=== PATIENT | male | born 1975 | race Two or more races ===

== ENCOUNTER 2024-07-13 02:56 | Emergency (ER) | payer MEDICAID, SELFPAY ==
[2024-07-13 03:06] VITALS: BP 132/77; PULSE 63; RESP 18; TEMP 36.7; O2SAT 97
--- NOTE | 2024-07-13 03:43 | EDNOTE_ITS ---
ED Extremity Problem RME/HPI General Chief complaint: Extremity Injury, Upper Stated complaint: RIGHT SHOULDER PAIN Time Seen by Provider: 07/13/24 03:39 Arrival date/time: 07/13/24 02:56 49M with no significant PMH presents to ED with [id number] R shoulder pain. Patient denies fall/trauma. Limitations: no limitations Related Data Allergies Allergy/AdvReac Type Severity Reaction Status Date / Time No Known Allergies Allergy Verified 07/13/24 03:05 Review of Systems Review of Systems Systems Reviewed: All systems reviewed, normal except as documented Constitutional Constitutional: Reports system reviewed and no additional complaints, except as documented, Denies fever(s) and Denies headache(s) ENT Ears, Nose, Mouth, and Throat: Denies disequilibrium and Denies headache(s) Cardiovascular Cardiovascular: Reports system reviewed and no additional complaints, except as documented, Denies chest pain and Denies dyspnea Respiratory Respiratory: Reports system reviewed and no additional complaints, except as documented, Denies cough and Denies dyspnea Gastrointestinal Gastrointestinal: Reports system reviewed and no additional complaints, except as documented, Denies abdominal pain, Denies nausea and Denies vomiting Musculoskeletal Musculoskeletal: Reports as per HPI and Reports arthralgias Neurologic Neurologic: Reports system reviewed and no additional complaints, except as d ocumented, Denies confusion, Denies disequilibrium and Denies headache(s) Psychiatric Psychiatric: Denies confusion Past Medical History Social History SMOKING STATUS: Never smoker ED Exam General Limitations: Present no limitations General appearance: Present alert and in no apparent distress Head Head exam: Present atraumatic Eye Eye exam: Present normal appearance, PERRL and EOMI ENT ENT exam: Present normal exam, normal oropharynx and mucous membranes moist Neck Neck exam: Present normal inspection, full ROM and trachea midline Chest Chest inspection: Present normal inspection and symmetric chest wall rise Respiratory Respiratory exam: Present normal lung sounds bilaterally Cardiovascular Cardiovascular exam: Present regular rate, normal rhythm and normal heart sounds Abdominal Exam Abdominal exam: Present soft and normal bowel sounds Extremities Exam Extremities exam: Present normal inspection and full ROM Back Exam Back exam: Present normal inspection and full ROM Neurological Exam Neurological exam: Present alert, oriented X3 and CN II-XII intact Psychiatric Psychiatric exam: Present normal affect and normal mood Skin Skin exam: Present warm, dry, intact and normal color Course Quality Measures none Orders Category Date Time Status sling [Splint / Immobilizer] STAT Care 07/13/24 03:42 Active Ketorolac Inj [Toradol Inj] Med 07/13/24 03:40 Discontinued 60 mg IM X1 ONE Vital Signs Vital signs: Vital Signs Temperature 98.0 F 07/13/24 03:06 Pulse Rate 63 07/13/24 03:06 Respiratory Rate 18 07/13/24 03:06 Blood Pressure 132/77 H 07/13/24 03:06 Pulse Oximetry (%) 97 07/13/24 03:06 O2 at 97% on RA and WNLs Extremity Problem MDM Narrative MDM Narrative:: 49M with no significant PMH presents to ED with [id number] R shoulder pain. Patient denies fall/trauma. Physical exam reveals no R shoulder tenderness, redness, or swelling. Pain is with ROM, which is mostly intact. Patient is afebrile, calm, and alert. Given meds, sling, and herb counselor. Patient data External records reviewed:: [facility] previous records Clinical information provided by:: patient Social determinants that could affect healthcare access:: none Patient has the following chronic illnesses:: none How is presenting disease/condition affected by chronic disease/condition?: no chronic disease Evaluation data The following diagnostics were reviewed and interpreted by me:: radiology exam(s) Lab and/or radiology exams considered but not ordered:: ordered Interpretation Summary: above Medications / Prescriptions Medications or Prescriptions considered but not ordered:: ordered Medication administrations:: Medication Administration History Discontinued Medications Ketorolac Tromethamine (Ketorolac Inj 60 Mg/2 Ml Vial) 60 mg IM X1 ONE Stop: 07/13/24 03:41 above Consultations Consultation(s) initiated? (list below): No Diagnosis Extremity Problem Differential Diagnosis: herpes zoster, gout, cellulitis, superficial thrombophlebitis, deep venous thrombosis of upper extremity, lower extremity edema, deep vein thrombosis of lower extremity and other (shoulder pain, adhesive capsulitis, OA) Most likely diagnosis given after review of the tests above:: shoulder pain Admission Indicated Admission indicated?: not indicated Admission Request Was there a request for admission?: No Disposition Plan Disposition Plan: Discharge Discharge Attestation Discharge Attestation: The patient and all family members were given an opportunity to ask questions and understood the discharge instructions. Discharge instructions specifically effects, indications for sooner follow up or return to the emergency department, and the expected course of current diagnosis. Patient condition: Stable Discharge Plan Plan Patient Disposition: HOME (Self Care) Disposition Comment: Stable Problem List Clinical Impression: Shoulder pain Patient/Caregiver Discharge Instructions Education Materials: ED Shoulder Pain, Uncertain Cause Additional Instructions: Please follow-up with PCP within 24-48 hours and return immediately if symptoms worsen. If problem persists, recommend outpatient PT and/or MRI follow-up. In the meantime, rest, use ice/heat, and/or compression. Print Language: Slovenian Stand Alone Forms: Patient Portal Info Letter PA/SEED ANALYSIS LABORATORY ASSISTANT Supervising Physician PA/SEED ANALYSIS LABORATORY ASSISTANT Supervising Physician:
[2024-07-13] MEDS: KETOROLAC INJ 60 MG/2 ML VIAL IM (03:46)
== END 2024-07-13 03:45 | disposition home or self-care (01) ==
LOC: SERX 04:11
PROVIDERS: Emergency Provider Emergency Medicine
DX: M25.511 Pain in right shoulder (principal)
CPT/HCPCS: 96372; 99283; A4565; J1885

== ENCOUNTER → 2024-07-14 | Outpatient (CLI) | payer MEDICAID, SELFPAY ==
--- NOTE | 2024-07-14 13:59 | XR_ITS ---
Examination: Shoulder,right, 3 views Technique: Shoulder AP internal rotation, AP external rotation, Y view shoulder, 3 views Exam date and time :July 14, 2024 1504 hours INDICATIONS: Trigeminal pain beginning 2 days ago. 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
== END | disposition home or self-care (01) ==
DX: M25.511 Pain in right shoulder (principal); M75.31 Calcific tendinitis of right shoulder
CPT/HCPCS: 73030